=== PATIENT | female | born 1955 | race Caucasian/White ===

== ENCOUNTER → 2017-01-24 | Outpatient (CLI) | payer OTHER ==
--- NOTE | 2017-01-24 11:04 | US ---
EXAMINATION TYPE: US thyroid st tissue head/neck DATE OF EXAM: 01/24/2017 10:48 AM COMPARISON: No previous CLINICAL HISTORY: E04.9 Nontoxic goiter. Enlarged thyroid, neck tenderness GLAND SIZE: Right Lobe: 5.5 x 2.4 x 2.2 cm Overall Parenchyma: homogenous Left Lobe: 5.4 x 2.4 x 2.0 cm Overall Parenchyma: homogeneous Isthmus Thickness: 0.5 cm NODULES RIGHT: # of nodules measured on right: 3 1. 1.0 X 1.0 x 1.1 cm hypoechoic solid nodule at the upper pole with well-defined margins. This nod ule is wider than tall and shows intranodular vascularity. Prior size: no previous 2. 0.8 X 0.6 x 0.7 cm hypoechoic solid nodule at the lower pole with well-defined margins. This nodu le is wider than tall and shows no intranodular vascularity. Prior size: no previous 3. 0.4 X 0.4 x 0.4 cm hypoechoic cystic nodule at the lower pole with well-defined margins. This nod ule is wider than tall and shows no intranodular vascularity. Prior size: no previous LEFT: # of nodules measured on left: 2 1. 1.3 X 0.6 x 0.9 cm hypoechoic mixed nodule at the mid pole with poorly defined margins. This nod ule is wider than tall and shows intranodular vascularity. Prior size: no previous 2. 0.8 X 0.7 x 0.8 cm hypoechoic solid nodule at the lower pole with well-defined margins. This nodu le is wider than tall and shows no intranodular vascularity. Prior size: no previous ISTHMUS: # of nodules measured in the isthmus: 0 IMPRESSION: Thyromegaly with multinodular thyroid changes as discussed above.
== END | disposition home or self-care (01) ==
LOC: RADUSWWP 10:26
PROVIDERS: ATTEND Family Medicine
DX: E04.2 Nontoxic multinodular goiter (principal); E01.0 Iodine-deficiency related diffuse (endemic) goiter
CPT/HCPCS: 76536

== ENCOUNTER → 2017-08-10 | Outpatient (CLI) | payer OTHER ==
--- NOTE | 2017-08-10 08:09 | US ---
EXAMINATION TYPE: US thyroid st tissue head/neck DATE OF EXAM: 08/10/2017 COMPARISON: 01/24/17 CLINICAL HISTORY: E04.9 Nontoxic Goiter. Follow up thyroid nodules GLAND SIZE: Right Lobe: 5.9 x 3.0 x 2.4 cm Overall Parenchyma: homogenous Left Lobe: 5.5 x 2.9 x 2.2cm Overall Parenchyma: homogeneous Isthmus Thickness: 0.5 cm NODULES RIGHT: # of nodules measured on right: 3 1. 1.1 X 0.9 x 1.3 cm hypoechoic solid nodule with calcifications at the upper pole with irregular margins; . This nodule is wider than tall and shows intranodular vascularity. Prior size: 1.0 x 1.0 x 1.1 cm 2. 0.8 X 0.6 x 0.7 cm hypoechoic solid nodule at the lower pole with well-defined margins; . This n odule is wider than tall and shows no intranodular vascularity. Prior size: 0.8 x 0.6 x 0.7 cm 3. 0.4 X 0.3 x 0.4 cm cystic nodule at the lower pole with well-defined margins; . This nodule is w ider than tall and shows no intranodular vascularity. Prior size: 0.4 x 0.4 x 0.4 cm LEFT: # of nodules measured on left: 2 1. 1.2 X 0.6 x 1.1 cm mixed nodule at the mid pole with poorly defined margins; . This nodule is w ider than tall and shows intranodular vascularity. Prior size: 1.3 x 0.6 x 0.9 cm 2. 0.8 X 0.5 x 0.6 cm hypoechoic solid nodule at the lower pole with well-defined margins; . This n odule is wider than tall and shows no intranodular vascularity. Prior size: 0.8 x 0.7 x 0.8 cm ISTHMUS: # of nodules measured in the isthmus: 0 Bilateral neck scanned, no evidence of lymphadenopathy. IMPRESSION: Enlarged thyroid gland with 3 nodules noted right lobe and 2 nodules noted on the left with little to no change compare to prior exam
--- NOTE | 2017-08-11 07:50 | MM ---
Reason for exam: screening (asymptomatic). Last mammogram was performed 2 years and 2 months ago. History: Patient is postmenopausal and had first child at age 37. Benign left mammotome panel of the left breast, January 10, 2009. Benign left US cyst aspiration ea add of the left breast, January 10, 2009. Benign left US cyst aspiration of the left breast, January 10, 2009. Took hormonal contraceptives for 3 years. Taking estrogen for 2 years. Taking progesterone for 2 years. Physical Findings: A clinical breast exam by your physician is recommended on an annual basis and results should be correlated with mammographic findings. MG Screening Mammo w CAD Bilateral CC and MLO view(s) were taken. Prior study comparison: June 24, 2015, bilateral MG screening mammo w CAD. October 01, 2013, [facility] DIGITAL LEFT BREAST MAMMOGRAM w/CAD. The breast tissue is heterogeneously dense. This may lower the sensitivity of mammography. Benign calcifications. There is no discrete abnormality. No significant changes when compared with prior studies. ASSESSMENT: Benign, BI-RAD 2 RECOMMENDATION: Routine screening mammogram of both breasts in 1 year.
== END | disposition home or self-care (01) ==
LOC: RADUSWWP 07:01
PROVIDERS: ATTEND Family Medicine
DX: Z12.31 Encounter for screening mammogram for malignant neoplasm of breast (principal); E04.2 Nontoxic multinodular goiter
CPT/HCPCS: 76536; G0202

== ENCOUNTER → 2017-12-24 | Outpatient (CLI) | payer OTHER ==
[2017-12-24 11:21] LABS: Basophils # (A) 0.1 k/uL (0-0.2); Basophils % (A) 1 %; Eosinophils # (A) 0.1 k/uL (0-0.7); Eosinophils % (A) 2 %; HCT 44.3 % (34.0-46.0); HGB 15.2 gm/dL (11.4-16.0); Lymphocytes # (A) 1.9 k/uL (1.0-4.8); Lymphocytes % (A) 37 %; MCH 30.6 pg (25.0-35.0); MCHC 34.2 g/dL (31.0-37.0); MCV 89.5 fL (80.0-100.0); Mean Platelet Volume 6.4; Monocytes # (A) 0.3 k/uL (0-1.0); Monocytes % (A) 6 %; Neutrophils # (A) 2.7 k/uL (1.3-7.7); Neutrophils % (A) 52 %; Platelet Count 187 k/uL (150-450); RBC 4.96 m/uL (3.80-5.40); RDW 13.4 % (11.5-15.5); WBC 5.2 k/uL (3.8-10.6)
== END | disposition home or self-care (01) ==
LOC: LABPAT 10:57
PROVIDERS: ATTEND Obstetrics & Gynecology
DX: Z01.818 Encounter for other preprocedural examination (principal); Z01.812 Encounter for preprocedural laboratory examination; I10 Essential (primary) hypertension; N95.0 Postmenopausal bleeding; N88.2 Stricture and stenosis of cervix uteri
CPT/HCPCS: 36415; 85025; 93005

== ENCOUNTER 2018-01-10 06:28 | Day surgery (SDC) | payer OTHER ==
[2017-12-30 12:56] VITALS: BMI 27.4
--- NOTE | 2018-01-09 14:52 | HP ---
HISTORY AND PHYSICAL DATE OF SERVICE: 01/09/2018 DATE OF SURGERY: 01/10/2018 HISTORY OF PRESENT ILLNESS: The patient is a 62-year-old 1, para 1-0-0-2 who presented to the office several times over the last year with complaints of fairly regular vaginal spotting. She has had a complete workup with ultrasound showing a fibroid, but only a 4 mm endometrial stripe. Office endometrial biopsy could not be done secondary to cervical stenosis. She does find that the spotting is slightly increased with a Valsalva. She was originally scheduled for hysteroscopy with D and C several months ago, but opted to cancel and follow her symptoms. As the bleeding and spotting continued for the following 3 months, she has opted to reschedule the procedure. PAST MEDICAL HISTORY: Significant for history of goiter as well as hypertension and nephrolithiasis. SURGICAL HISTORY: Significant for tonsils and adenoids removed, a breast biopsy in 2008, a in 1991, endometrial biopsy in 2006 which was benign and then diagnostic laparoscopy with laser ablation of endometriosis on two separate occasions in both 1989 and 1990. There were no anesthetic concerns. OBSTETRICAL HISTORY: 1, para 1-0-0-2 with 1 set of twins delivered by section at term. The patient is otherwise menopausal and not in need of contraception. GYNECOLOGIC HISTORY: Unremarkable with no history of any infections to include STDs. FAMILY HISTORY: Noncontributory. SOCIAL HISTORY: The patient is and is a nonsmoker. 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 She denies any other social concerns. CURRENT MEDICATIONS: 1. Maxzide 5 mg daily. 2. Topical medication for her scalp as needed. ALLERGIES: No known drug allergies. REVIEW OF SYSTEMS: Confined to history of present illness. PHYSICAL EXAMINATION: Vital signs are stable and the patient is afebrile. In general, this is a well- developed, well-nourished white female in no acute distress. Her heart has a regular rhythm and rate without murmur. Her lungs are clear to auscultation bilaterally in all eckert. Her abdomen is nondistended, has normoactive bowel sounds, is soft, nontender, and without any palpable masses, hepatosplenomegaly, or hernias. Her extremities are without any cyanosis, clubbing, or edema and are nontender to palpation bilaterally. Pelvic examination demonstrates normal external genitalia and BUS with normal vaginal mucosa and cervix. There is no cervical motion tenderness. The cervix is also quite stenotic. The uterus is otherwise atrophic in size, mid plane, mobile, nontender, and otherwise normal in shape. The adnexa are normal and nontender without mass bilaterally. IMPRESSION: Postmenopausal bleeding, cervical stenosis: We have scheduled a diagnostic hysteroscopy with D and C. The risks and complications of this procedure have been thoroughly discussed including the risk for bleeding, bleeding with chronic transfusion, infection, and injury to local structures to specifically include uterine perforation and Asherman syndrome. She has understood all this and has agreed to proceed. MMODL / IJN: [id number] /
[~2018-01-10 06:28] MED LIST: DEXAMETHASONE SOD PHOSPHATE 10 MG/ML 1 ML VIAL IV ONE; LACTATED RINGERS 1,000 ML IV SCH; MIDAZOLAM 2 MG/2 ML VIAL IV PRN; MORPHINE SULFATE 4 MG/ML SYRINGE IV PRN; ONDANSETRON 4 MG/2 ML VIAL IVP ONE; Pre Op ABX Message 1 EACH MISC MISCELLANE ONE; SCOPOLAMINE 1.5MG/72HR PATCH TRANSDERM ONE
[2018-01-10] MEDS ORDERED: LIDOCAINE 1% 20 ML VIAL (10MG/ML) FOR IV START INTRADERMA ONE (07:00)
[2018-01-10] MEDS ORDERED: diphenhydrAMINE 50 MG/ML 1 ML VIAL IVP PRN (07:54)
[2018-01-10] MEDS ORDERED: METOCLOPRAMIDE 5 MG/ML 2 ML VIAL IVP PRN (07:54)
[2018-01-10] MEDS ORDERED: SIMETHICONE 80 MG CHEWABLE PO PRN (07:54)
[2018-01-10] MEDS ORDERED: ONDANSETRON 4 MG/2 ML VIAL IVP PRN (07:54)
[2018-01-10] MEDS ORDERED: Acetaminophen-Codeine 300-30mg TAB PO PRN ×2 (07:54)
[2018-01-10] MEDS ORDERED: IBUPROFEN 600 MG TAB PO PRN (07:54)
[2018-01-10] MEDS ORDERED: KETOROLAC 30 MG/ML 1 ML VIAL IVP PRN (07:54)
[2018-01-10] MEDS ORDERED: PROPOFOL 10 MG/ML 20 ML VIAL IV ONE (07:55)
[2018-01-10] MEDS ORDERED: KETOROLAC 30 MG/ML 1 ML VIAL ONE (07:55)
[2018-01-10] MEDS ORDERED: fentaNYL (PF) 50 MCG/ML 2 ML AMP ONE (07:55)
[2018-01-10] MEDS ORDERED: MIDAZOLAM 2 MG/2 ML VIAL ONE (07:55)
[2018-01-10] MEDS ORDERED: LIDOCAINE 1% INJ 10MG/ML (20 ML MDV) ONE (07:55)
[2018-01-10] MEDS ORDERED: LACTATED RINGERS 1,000 ML IV SCH (08:00)
--- NOTE | 2018-01-10 08:41 | P.OP ---
Date of Procedure: 01/10/18 Preoperative Diagnosis: #1. Postmenopausal bleeding #2. Cervical stenosis Postoperative Diagnosis: Same Procedure(s) Performed: #1. Diagnostic hysteroscopy #2. Dilation and curettage Anesthesia: other (Gen. by face mask) Surgeon: Arsen Huynh Estimated Blood Loss (ml): 5 IV fluids (ml): 400 Urine output (ml): 75 Pathology: other (Endometrial curettings) Condition: stable Disposition: PACU Operative Findings: Preoperative pelvic examination demonstrated a 4-5 week anteverted mobile normal shaped uterus with normal adnexa bilaterally. Intraoperatively, the uterus sounded to approximately 7-8 cm. There was some concern for the possibility of a false track or uterine perforation during the procedure. However, the endometrial cavity did appear to be normal by hysteroscopy. There was a small amount of shaggy tissue scattered throughout. Curettage produced a small amount of tissue onto a Telfa which was sent to pathology. Description of Procedure: The patient was prepped and draped in usual fashion after general anesthesia was administered by the anesthesiologist. A weighted speculum was placed in the anterior and posterior lip of the cervix were grasped with tenaculums. The cervix itself was significantly atrophic and stenotic in nature. I was unable to initially pass a sound. A small dilator was ultimately utilized to enter the uterine cavity and serial dilation carried out. There was some concern as to the possibility of a perforation and the uterus ultimately sounded to approximately 7-8 cm. After adequate dilation, the diagnostic hysteroscope was placed and the appeared to be within the endometrial cavity as the one tubal ostia was definitely identified. A small amount of further dilation was carried out to admit a small sharp curette. The in vitro cavity was then thoroughly curetted onto a Telfa placed in the vagina with a small amount of tissue returned. No perforation was ever identified using the hysteroscope. All instrumentation was removed and minimal ongoing bleeding was noted from the cervix or otherwise. As the patient was otherwise stable, the procedure was terminated. Estimated blood loss was less than 5 mL. There were no complications aside from the possibility of perforation of the uterus which was never documented. All sponge, instrument, and needle counts were correct. Patient tolerated the procedure well and proceeded to the recovery room in stable condition.
[2018-01-10 08:51] VITALS: TEMP 97.4
[2018-01-10 09:43] VITALS: RESP 16
[2018-01-10 10:24] VITALS: BP 132/70; PULSE 70
== END 2018-01-10 10:35 | disposition home or self-care (01) ==
LOC: OR 06:28
PROVIDERS: ATTEND Obstetrics & Gynecology
DX: C54.1 Malignant neoplasm of endometrium (principal); M48.02 Spinal stenosis, cervical region; I10 Essential (primary) hypertension; Z87.442 Personal history of urinary calculi; M79.1 Myalgia; Z79.899 Other long term (current) drug therapy
CPT/HCPCS: 88305; 88342; 88341; 58558; J2250; J1100; J2405; J2001; J3010; J1885; J2704

== ENCOUNTER → 2018-04-04 | Outpatient (CLI) | payer OTHER ==
--- NOTE | 2018-04-04 17:40 | US ---
EXAMINATION TYPE: US thyroid st tissue head/neck DATE OF EXAM: 04/04/2018 COMPARISON: 07/31/2017 CLINICAL HISTORY: E04.2 Nontoxic multinodular goiter. GLAND SIZE: Right Lobe: 6.0 x 2.4 x 2.7 cm Overall Parenchyma: homogenous Left Lobe: 5.5 x 2.3 x 2.0 cm Overall Parenchyma: homogeneous Isthmus Thickness: 0.6 cm NODULES RIGHT: # of nodules measured on right: 2 1. 1.1 x 0.8 x 1.1 cm hypoechoic solid nodule at the upper pole with irregular margins; interrupted peripheral calcification. This nodule is wider than tall and shows intranodular vascularity. Prior size: 1.1 x 0.9 x 1.1 cm 2. 0.7 X 0.6 x 0.7 cm isoechoic solid nodule at the lower pole with well-defined margins This nod ule is wider than tall and shows no intranodular vascularity. Prior size: 0.8 x 0.6 x 0.7 cm 3. subcentimeter cyst seen previously not seen on today's exam LEFT: # of nodules measured on left: 2 1. 1.0 X 0.5 x 0.9 cm isoechoic solid nodule at the upper pole with well-defined margins. This nod ule is wider than tall and shows intranodular vascularity. Prior size: 1.2 x 0.6 x 1.1 cm 2. 0.6 X 0.5 x 0.6 cm isoechoic solid nodule at the lower pole with well-defined margins . This nodu le is wider than tall and shows no intranodular vascularity. Prior size: 0.8 x 0.5 x 0.6 cm ISTHMUS: # of nodules measured in the isthmus: 0 Bilateral neck scanned, no evidence of lymphadenopathy. IMPRESSION: Enlarged thyroid gland with multiple nodular densities. No dominant thyroid mass. No adverse change o verall compared to old exam. This is consistent with multinodular goiter.
== END | disposition home or self-care (01) ==
LOC: RADUSWWP 16:52
PROVIDERS: ATTEND Internal Medicine Endocrinology, Diabetes & Metabolism
DX: E04.2 Nontoxic multinodular goiter (principal)
CPT/HCPCS: 76536

== ENCOUNTER → 2018-08-09 | Outpatient (CLI) | payer OTHER ==
[2018-08-09 11:18] LABS: Blood Urea Nitrogen 11 mg/dL (7-17)
--- NOTE | 2018-08-10 13:49 | CT ---
EXAMINATION TYPE: CT ChestAbdPelvis w con DATE OF EXAM: 08/09/2018 COMPARISON: Prior CT chest abdomen pelvis 02/04/2018 from outside institution HISTORY: Uterine CA CT DLP: 833.7 mGycm Automated exposure control for dose reduction was used. CONTRAST: CT scan of the chest, abdomen and pelvis is performed with Oral Contrast and with IV Contrast, patien t injected with 100 mL of Isovue 300. FINDINGS: Right jugular Port-A-Cath is present, distal tip of the catheter coursing to the cavoatrial junction level, port is in the right pectoral region. There is a hiatal hernia present. LUNGS: The lungs are grossly clear, there is no concerning parenchymal mass or nodule identified. Pre viously identified subpleural 2 mm nodule not identified with certainty. There is no pleural effusio n or pneumothorax seen. The tracheobronchial tree is patent. MEDIASTINUM: There are no greater than 1 cm hilar or mediastinal lymph nodes. No pericardial effusi on is seen. AORTA: No significant abnormality is seen. OTHER: No additional significant abnormality is seen. LIVER/GB: Large probable hemangioma again noted within the posterior right lobe of the liver shows a similar appearance.. PANCREAS: Calcifications within the tail of the pancreas is stable.. SPLEEN: No significant abnormality is seen. ADRENALS: No significant abnormality is seen. KIDNEYS: Nonobstructive punctate right renal calculus, mild right-sided hydronephrosis, possible UPJ stenosis noted as on prior exam. There is an enhancing structure adjacent to the aorta is likely veno us as on prior exam the left of midline, axial image 69 may be related to patient's circumaortic left renal vein, possible varix. REPRODUCTIVE ORGANS: Not seen, interval hysterectomy. BOWEL: No significant abnormality is seen. FREE AIR: No Free Air visible. ASCITES: None seen. RETROPERITONEAL ADENOPATHY: There is an oval hypodense focus adjacent to the abdominal aorta displac ing the left ureter extending to the iliac bifurcation measuring approximately 3 cm x 3 cm x 5.7 cm. This was not present on prior exam. Along the external iliac vasculature, left pelvic sidewall there is a focal hypodense region measuring approximately 6.6 x 4.5 x 6.6 cm which was not seen on prior ex am. Along the right pelvic sidewall also showing some mass effect on the external iliac vein as on th e contralateral side there is a smaller hypodense hourglass shaped focus measuring 4.7 x 3 x 4.7 cm. This is also developed in the interval. URINARY BLADDER: No significant abnormality is seen. PELVIC ADENOPATHY: None visualized. OSSEOUS STRUCTURES: No significant abnormality is seen. IMPRESSION: There is been interval development of probable pelvic and retroperitoneal adenopathy whic h shows low density. Additional findings above.
== END | disposition home or self-care (01) ==
LOC: RADPROMAIN 10:20
PROVIDERS: ATTEND Internal Medicine Hematology & Oncology
DX: Z03.89 Encounter for observation for other suspected diseases and conditions ruled out (principal); C54.9 Malignant neoplasm of corpus uteri, unspecified
CPT/HCPCS: 82565; 84520; 71260; 74177; J1642; Q9967

== ENCOUNTER → 2018-08-16 | Outpatient (CLI) | payer OTHER ==
--- NOTE | 2018-08-16 09:50 | US ---
EXAMINATION TYPE: US venous doppler duplex LE LT DATE OF EXAM: 08/16/2018 9:34 AM COMPARISON: NONE CLINICAL HISTORY: R22.42 Swelling left lower extremity. left leg swelling x 1 month, pt h/o chemo for uterine CA SIDE PERFORMED: Left TECHNIQUE: The lower extremity deep venous system is examined utilizing real time linear array sonog dean with graded compression, doppler sonography and color-flow sonography. VESSELS IMAGED: External Iliac Vein (EIV) Common Femoral Vein Deep Femoral Vein Greater Saphenous Vein * Femoral Vein Popliteal Vein Small Saphenous Vein * Proximal Calf Veins (* superficial vessels) Left Leg: Negative for DVT Results called to Alber at Dr's office at time of exam IMPRESSION: 1. Left lower extremity ultrasound negative for deep venous fibrosis.
== END ==
LOC: RADUSWWP 09:04
PROVIDERS: ATTEND Internal Medicine Hematology & Oncology
DX: R22.42 Localized swelling, mass and lump, left lower limb (principal)

== ENCOUNTER → 2018-09-11 | Outpatient (CLI) | payer OTHER ==
--- NOTE | 2018-09-12 16:21 | BMR ---
EXAMINATION TYPE: MR breast BILAT wo/w con DATE OF EXAM: 09/11/2018 COMPARISON: Mammograms dated 08/10/2017, 06/24/2015, and 09/21/2013. HISTORY: Genetic susceptibility, uterine ca TECHNIQUE: A series of fat and water weighted images in the long and short axis views of both breasts are obtained in conjunction with dynamic contrast MRI with subtraction technique. The patient was i njected with 7 mL intravenous Gadavist gadolinium contrast. Three-dimensional and additional postpr ocessing imaging is created on independent workstation and reviewed during official interpretation of this study. FINDINGS: The breasts are composed of heterogenous fibroglandular tissue. There is mild symmetric background pa renchymal enhancement. T2 weighted axial imaging demonstrates a subcentimeter cyst at the 5:30 positi on at posterior depth. Right-sided Mediport is appreciated. Bilateral calcifications. Small areas of susceptibility artifact as does the upper outer quadrant pos terior depth left breast biopsy marker. Also a posterior depth in the upper outer quadrant of the lef t breast there is a morphologically normal-appearing lymph nodes similar to the prior mammogram measu ring 4 mm in short axis. There is no suspicious mass or nodule mass enhancement of either breast. No MR evidence of suspicious intramammary, internal mammary, or axillary adenopathy. IMPRESSION: BI-RADS 1-No MRI evidence of malignancy. Annual screening mammography is recommended with considerati on for annual supplementation with MRI given this patient's high risk status.
== END ==
LOC: RADMRIMAIN 19:31
PROVIDERS: ATTEND Internal Medicine Hematology & Oncology
DX: C54.9 Malignant neoplasm of corpus uteri, unspecified (principal); Z15.01 Genetic susceptibility to malignant neoplasm of breast
CPT/HCPCS: 77059; 0159T; A9581

== ENCOUNTER 2018-09-15 08:40 | Day surgery (SDC) | payer OTHER ==
[2018-09-11 12:42] VITALS: BMI 25.0
[~2018-09-15 08:40] MED LIST changes: +HYDROmorphone 1 MG/ML 1 ML SYRINGE IVP PRN; -MORPHINE SULFATE 4 MG/ML SYRINGE IV PRN; -Pre Op ABX Message 1 EACH MISC MISCELLANE ONE; +ceFAZolin IN SWFI 2 GM/20 ML SYRINGE IVP ONE
[2018-09-15] MEDS ORDERED: LIDOCAINE 1% 20 ML VIAL (10MG/ML) FOR IV START INTRADERMA ONE (09:19)
[2018-09-15 09:20] VITALS: RESP 16; TEMP 97.2
--- NOTE | 2018-09-15 12:42 | P.GSHP ---
History of Present Illness H&P Date: 09/15/18 Chief Complaint: Endometrial cancer by Patient today for Port-A-Cath removal. Patient finished her recent chemotherapy for endometrial cancer. Otherwise no complaints. Her unfortunately was sent to the emergency department with chest pain today. She is requesting no anesthesia. Past Medical History Past Medical History: Cancer, Hearing Disorder / Deafness, Hypertension, Thyroid Disorder Additional Past Medical History / Comment(s): Uterine Cancer, thyroid nodules, deaf in left ear, numbness in left hip. History of Any Multi-Drug Resistant Organisms: None Reported Past Surgical History: Section, Hysterectomy Additional Past Surgical History / Comment(s): Laproscopies, port a catheter placement. Past Anesthesia/Blood Transfusion Reactions: No Reported Reaction Past Psychological History: No Psychological Hx Reported Smoking Status: Never smoker Past Alcohol Use History: Rare Past Drug Use History: None Reported - Past Family History Sister(s) Family Medical History: Cancer Medications and Allergies Home Medications Medication Instructions Recorded Confirmed Type Triamterene-Hctz 37.5-25Mg 1 tab PO QAM 12/30/17 09/15/18 History [Maxzide 37.5-25] amLODIPine [Norvasc] 10 mg PO QAM 09/11/18 09/15/18 History Allergies Allergy/AdvReac Type Severity Reaction Status Date / Time No Known Allergies Allergy Verified 09/15/18 09:01 Surgical - Exam Vital Signs Temp Pulse Resp BP Pulse Ox 97.2 F L 74 16 121/59 98 09/15/18 09:19 09/15/18 09:19 09/15/18 09:19 09/15/18 09:19 09/15/18 09:19 Physical exam: General: Well-developed, well-nourished HEENT: Normocephalic, sclerae nonicteric Abdomen: Nontender, nondistended Extremities: No edema Neuro: Alert and oriented Assessment and Plan (1) Endometrial cancer Narrative/Plan: Will proceed with Port-A-Cath removal Current Visit: Yes Status: Acute Code(s): C54.1 - MALIGNANT NEOPLASM OF ENDOMETRIUM SNOMED Code(s): 427284759
[2018-09-15] MEDS ORDERED: LIDOCAINE 1% INJ 10MG/ML (20 ML MDV) SQ ONE ×2 (13:07)
[2018-09-15 13:36] VITALS: BP 139/76; PULSE 100
--- NOTE | 2018-09-28 08:12 | P.OP ---
Date of Procedure: 09/28/18 Procedure(s) Performed: PREOPERATIVE DIAGNOSIS: Uterine cancer POSTOPERATIVE DIAGNOSIS: Same PROCEDURE: Port-A-Cath removal SURGEON: Carson EBL: Minimal ANESTHESIA: Local COMPLICATIONS: None OPERATIVE PROCEDURE: Patient was placed in the supine position. The chest was prepped and draped in the usual sterile fashion. The skin was localized with Marcaine solution. The previous incision was re-incised using a scalpel. The port was easily excised using accommodation of blunt dissection sharp dissection and electrocautery. The subcutaneous tissues were reapproximated using 3-0 Vicryl sutures. The skin was reapproximated using 4-0 Monocryl sutures. Steri-Strips and sterile dressings were then applied. DISPOSITION: Stable to recovery room
== END 2018-09-15 14:08 | disposition home or self-care (01) ==
LOC: OR 08:40
PROVIDERS: ATTEND Surgery
DX: C54.1 Malignant neoplasm of endometrium (principal); Z45.2 Encounter for adjustment and management of vascular access device; Z92.21 Personal history of antineoplastic chemotherapy; Z85.42 Personal history of malignant neoplasm of other parts of uterus; H91.92 Unspecified hearing loss, left ear; I10 Essential (primary) hypertension; E04.1 Nontoxic single thyroid nodule; Z79.899 Other long term (current) drug therapy
CPT/HCPCS: 36590; J1100; J2405; J2001; J0690

== ENCOUNTER → 2018-12-08 | Outpatient (CLI) | payer OTHER ==
--- NOTE | 2018-12-08 10:42 | MR ---
"MR left hip HISTORY: Left hip pain Multiplanar multisequence imaging obtained through the pelvis. Patient was unable to continue the exa m. Exam was aborted prior to termination. Correlation to CT chest abdomen pelvis 08/09/2018 Abnormal fluid signal is present running along the distribution of the iliopsoas which appears more e xtensive than prior CT, fluid signal in the left hemipelvis could be related to the prior fluid colle ction is seen on CT. Focal hypointensities are scattered within the fluid signal which are indetermin ate. Edema signal is present within the musculature about the left hip and within the subcutaneous so ft tissues. Cystic signal in the right hemipelvis shows a similar appearance to prior CT. There is so me free fluid within the pelvis. Bone marrow signal is maintained. There is no evident fracture or di slocation. Possible colonic wall thickening noted incidentally. IMPRESSION: Exam is incomplete. There are findings compatible with patient's previous abnormality brian cribed on CT of 08/09/2018 and likely related to patient's endometrial carcinoma. New signal abnormali ties are present along the iliopsoas musculature, cannot exclude iliopsoas abscess. Correlate for his tory of recent treatment for patient's endometrial carcinoma. Possible colonic wall thickening. Repor t relayed to the office of Dr. Lobato at the time of interpretation of the exam. A Yellow level critical message alert has been initiated for Alex Gil MD via the [employer] 36 0 | Critical Results System on 12/08/2018 10:39 AM. This message alert has been sent to Alex Gil MD via the preferences provided by the clinician for the receipt of Radiology Critical Findings. Nm ssage ID [id number]."
== END ==
LOC: RADMRIMAIN 08:50
PROVIDERS: ATTEND Orthopaedic Surgery
DX: M25.552 Pain in left hip (principal)

== ENCOUNTER 2018-12-15 15:01 | Emergency (ER) | payer OTHER ==
[2018-12-15] MEDS ORDERED: PIPERACILLIN-TAZOBACTAM 3.375 GM in SODIUM CHLORIDE 0.9% 100 ML IVPB STA (15:38)
[2018-12-15] MEDS ORDERED: SODIUM CHLORIDE 0.9% 1,000 ML IV STA (15:38)
[2018-12-15] MEDS ORDERED: VANCOMYCIN IV PER PHARMACY 1 EACH MISC MISCELLANE PRN (15:40)
[2018-12-15] MEDS ORDERED: CLINDAMYCIN 600 MG in DEXTROSE 5% IN WATER 50 ML IVPB STA ×2 (15:42)
[2018-12-15] MEDS ORDERED: VANCOMYCIN 1,500 MG in SODIUM CHLORIDE 0.9% 250 ML IVPB ONE (16:00)
--- NOTE | 2018-12-15 16:01 | ED ---
General Adult HPI - General Chief complaint: Extremity Problem,Nontraumatic Stated complaint: hip infection Time Seen by Provider: 12/15/18 15:30 Source: patient, RN notes reviewed, old records reviewed Mode of arrival: ambulatory Limitations: no limitations - History of Present Illness Initial comments: 63-year-old female presenting with abnormal outpatient CT. Patient's has complaint of left hip pain. Pain is been present for the past one month. She has been seen by her primary care physician and orthopedics. She'll and MRI one week ago. Computed tomography scan of the abdomen and pelvis today. CT abdomen and pelvis today show concern for healthcare and sinus abscess patient was instructed to present to the emergency department for evaluation. She states she has had subjective fever and chills including night sweats. She has recent history of uterine cancer status post chemo which ended approximately 5 months ago. She is not currently on chemotherapy. She has had abdominal surgery and lymph node removal at [facility] most recently January 2018. Patient states that over the past 1 week her pain has improved although she still has been lifting pain and left hip. Denies abdominal pain. Denies vomiting or diarrhea. - Related Data Home Medications Medication Instructions Recorded Confirmed Triamterene-Hctz 37.5-25Mg 1 tab PO DAILY 12/30/17 12/15/18 [Maxzide 37.5-25] Acetaminophen [Tylenol Extra 1,000 mg PO TID PRN 12/15/18 12/15/18 Strength] Ibuprofen [Motrin Ib] 400 mg PO Q6HR PRN 12/15/18 12/15/18 Allergies Allergy/AdvReac Type Severity Reaction Status Date / Time No Known Allergies Allergy Verified 12/15/18 16:26 Review of Systems ROS Statement: Those systems with pertinent positive or pertinent negative responses have been documented in the HPI. ROS Other: All systems not noted in ROS Statement are negative. Past Medical History Past Medical History: Cancer, Hearing Disorder / Deafness, Hypertension, Thyroid Disorder Additional Past Medical History / Comment(s): Uterine Cancer, thyroid nodules, deaf in left ear, numbness in left hip. History of Any Multi-Drug Resistant Organisms: None Reported Past Surgical History: Section, Hysterectomy Additional Past Surgical History / Comment(s): Laproscopies, port a catheter placement removed. Past Anesthesia/Blood Transfusion Reactions: No Reported Reaction Past Psychological History: No Psychological Hx Reported Smoking Status: Never smoker Past Alcohol Use History: Rare Past Drug Use History: None Reported - Past Family History Sister(s) Family Medical History: Cancer General Exam Limitations: no limitations General appearance: alert, in no apparent distress Head exam: Present: atraumatic, normocephalic Eye exam: Present: normal appearance, PERRL ENT exam: Present: normal exam Neck exam: Present: normal inspection. Absent: tenderness, meningismus Respiratory exam: Present: normal lung sounds bilaterally. Absent: respiratory distress, wheezes Cardiovascular Exam: Present: normal rhythm, tachycardia GI/Abdominal exam: Present: soft. Absent: distended, tenderness, guarding Extremities exam: Present: other (And mild pain with range of motion of left hip. No external skin changes, no induration or fluctuance) Neurological exam: Present: alert, oriented X3, CN II-XII intact. Absent: motor sensory deficit Psychiatric exam: Present: normal affect, normal mood Skin exam: Present: warm, dry, intact. Absent: cyanosis, diaphoretic Course Vital Signs 12/15/18 12/15/18 15:10 16:36 Temperature 98.2 F 98.5 F Pulse Rate 101 H 84 Respiratory 20 16 Rate Blood Pressure 153/66 143/70 O2 Sat by Pulse 99 98 Oximetry Medical Decision Making - Medical Decision Making 63-year-old female presenting with a one-month history of left hip pain, outpatient CT evidence of leukocytosis and psoas abscess, loculated abscess measuring 14 cm in its greatest dimension. There is significant intramuscular.. Fasciitis cannot be ruled out on computed tomography scan. Does have some necrotic lymph nodes in the left hemipelvis. I did discuss this case with the admitting physician at this institution as well as interventional radiology. She's felt at this time that the patient will be pursued for higher level of care. She has a relationship with [facility] where her uterine cancer been treated within the past year. Laboratory studies obtained including CBC, CMP, lactic acid and blood cultures. These are pending. Patient is started on Zosyn, clindamycin, and vancomycin. Case is discussed with the surgical accepting physician Dr. Brown, who feels this patient is better suited to ER transfer for possible interventional radiology. Discussed case with the ER physician at [facility] Dr. Roblero, who will accept transfer. All laboratory studies and blood cultures pending. - Lab Data Lab Results 12/15/18 Range/Units 16:00 Urine Color Light Yellow Urine Appearance Clear (Clear) Urine pH 7.5 (5.0-8.0) Ur Specific [place] 1.029 (1.001-1.035) Urine Protein Negative (Negative) Urine Glucose (UA) Negative (Negative) Urine Ketones Negative (Negative) Urine Blood Negative (Negative) Urine Nitrite Negative (Negative) Urine Bilirubin Negative (Negative) Urine Urobilinogen <2.0 (<2.0) mg/dL Ur Leukocyte Esterase Negative (Negative) Disposition Clinical Impression: Iliopsoas abscess on left Disposition: OTHER INSTITUTION NOT DEFINED Condition: Serious Is patient prescribed a controlled substance at d/c from ED?: No Referrals: Rod Chang III, MD [Primary Care Provider] - 1-2 days Time of Disposition: 16:05 - Out of Hospital Transfer - Req. Specs Out of Hospital Transfer - Requested Specifics: Other Emergency Center ( Transferred to [facility] emergency department)
[2018-12-15] MEDS ORDERED: MORPHINE SULFATE 4 MG/ML SYRINGE IVP STA (16:04)
[2018-12-15 16:37] VITALS: RESP 16; TEMP 98.5
[2018-12-15 16:43] LABS: Appearance,Urine Clear (Clear); Bilirubin,Urine Negative (Negative); Blood,Urine Negative (Negative); Color,Urine Light Yellow; Glucose,Urine (UA) Negative (Negative); HCT 30.1 % (34.0-46.0); Ketones,Urine Negative (Negative); Leukocyte Esterase,Urine Negative (Negative); MCH 29.4 pg (25.0-35.0); MCHC 32.1 g/dL (31.0-37.0); MCV 91.7 fL (80.0-100.0); Nitrite,Urine Negative (Negative); PH, Urine 7.5 (5.0-8.0); Protein,Urine Negative (Negative); RBC 3.29 m/uL (3.80-5.40); Specific Gravity,Urine 1.029 (1.001-1.035); Urobilinogen,Urine <2.0 mg/dL (<2.0); WBC 5.7 k/uL (3.8-10.6)
[2018-12-15 16:44] LABS: Basophils # (A) 0.1 k/uL (0-0.2); Basophils % (A) 1 %; Eosinophils # (A) 0.1 k/uL (0-0.7); Eosinophils % (A) 2 %; Lymphocytes # (A) 0.8 k/uL (1.0-4.8); Lymphocytes % (A) 15 %; Mean Platelet Volume 7.2; Monocytes # (A) 0.4 k/uL (0-1.0); Monocytes % (A) 7 %; Neutrophils # (A) 4.2 k/uL (1.3-7.7); Neutrophils % (A) 73 %; RDW 15.5 % (11.5-15.5)
[2018-12-15 16:51] LABS: HGB 9.7 gm/dL (11.4-16.0); Platelet Count 507 k/uL (150-450)
[2018-12-15 16:53] VITALS: BP 138/79; PULSE 83
[2018-12-15 16:57] LABS: ALT 26 U/L (9-52); AST 19 U/L (14-36); Albumin 2.9 g/dL (3.5-5.0); Alkaline Phosphatase 106 U/L (38-126); Anion Gap 6 mmol/L; Blood Urea Nitrogen 13 mg/dL (7-17); Calcium 8.9 mg/dL (8.4-10.2); Carbon Dioxide 28 mmol/L (22-30); Chloride 104 mmol/L (98-107); Glucose 97 mg/dL (74-99); Potassium 4.5 mmol/L (3.5-5.1); Sodium 138 mmol/L (137-145); Total Bilirubin 0.3 mg/dL (0.2-1.3); Total Protein 6.6 g/dL (6.3-8.2)
== END 2018-12-15 17:06 | disposition other institution (70) ==
LOC: EC 15:01
DX: K68.12 Psoas muscle abscess (principal); I10 Essential (primary) hypertension; H91.92 Unspecified hearing loss, left ear; Z85.42 Personal history of malignant neoplasm of other parts of uterus; Z79.899 Other long term (current) drug therapy; Z92.21 Personal history of antineoplastic chemotherapy
CPT/HCPCS: 36415; 80053; 83605; 85025; 81003; 87040; 99284; 96365; 96375; J2270

== ENCOUNTER → 2018-12-15 | Outpatient (CLI) | payer OTHER ==
--- NOTE | 2018-12-15 15:00 | CT ---
EXAMINATION TYPE: CT ChestAbdPelvis w con DATE OF EXAM: 12/15/2018 COMPARISON: 08/09/2018 HISTORY: Uterine cancer follow up, left hip pain. CT DLP: 705.2 mGycm Automated exposure control for dose reduction was used. CONTRAST: CT scan of the chest, abdomen and pelvis is performed with Oral Contrast and with IV Contrast, patien t injected with 100 mL of Isovue M300. FINDINGS: LUNGS: The lungs are grossly clear, there is no concerning parenchymal mass or nodule identified. T here is no pleural effusion or pneumothorax seen. The tracheobronchial tree is patent. 2 mm subpleur al nodule right upper lobe likely is benign. Subsegmental consolidation both lungs with tiny effusion s. Subpleural nodule laterally measures 5 mm axial image 39 MEDIASTINUM: The heart is enlarged. Minimal pericardial fluid seen. No pathologic adenopathy. Subcent imeter left thyroid nodule noted. OTHER: No additional significant abnormality is seen. LIVER/GB: Large probable hemangioma again noted within the posterior right lobe of the liver shows a similar appearance. Measures 5.5 x 3.5 cm. Localized fatty infiltration involving the left lobe of th e liver suspected. PANCREAS: No significant abnormality is seen. SPLEEN: No significant abnormality is seen. ADRENALS: No significant abnormality is seen. KIDNEYS: Nonobstructive punctate right renal calculus, mild right-sided hydronephrosis, possible UPJ stenosis noted as on prior exam. There is an enhancing structure adjacent to the aorta is likely veno us as on prior exam the left of midline, may be related to patient's circumaortic left renal vein, po ssible varix BOWEL: No significant abnormality is seen. LYMPH NODES: There is a lobulated density within the right iliac chain measuring 2.1 x 4.3 cm essenti ally stable relative the previous exam given differences in technique. Left hemipelvic lobulated dens ity appears to be involvement of the suspected abscess.. Left-sided retroperitoneal and periaortic ly mph node which appears low densities likely seen on today's exam. OSSEOUS STRUCTURES: Multilevel hypertrophic and degenerative changes are seen.. OTHER: There is abnormal air and fluid attenuation extending from the left groin into the left iliops oas muscle. There is a represent a large multiloculated abscess. Measures 14 cm in craniocaudal dimen robby. Abnormal soft tissue extends from the anterior musculature anterior to the femoral head into th e iliopsoas muscles into the pelvis. Cannot exclude some reactive wall thickening of the sigmoid colo n. Appears to be a multiloculated abscess with or wo necrotic lymph nodes. A fasciitis is in the diff erential diagnosis. Report immediately called to the Dr. John by telephone. Enhancing structure within the left retroperitoneum is stable may represent an aneurysm or varix or v ascular malformation. Small amount of free fluid in the pelvis. IMPRESSION: 1. Abnormal soft tissue thickening containing air and fluid in the musculature anterior to the femora l head extending into the pelvis into the psoas and iliopsoas muscle a length of 14 cm compatible wit h a multiloculated abscess. Fasciitis not excluded. There are a couple bubbles of free air within the retroperitoneum. There is thickening of the wall the left colon which may be reactive or related to a diverticulitis or colitis. Necrotic lymph nodes in the left hemipelvis also suspected. Finding was called to the referring physi scarlett. 2. Stable lymphadenopathy within the right hemipelvis appears low density unchanged in size or morpho logy. 3. There is right-sided hydronephrosis with a punctate 2 mm calcification. Obstruction may be seconda ry to congenital UPJ obstruction.
== END | disposition home or self-care (01) ==
LOC: RADCTMAIN 11:29
PROVIDERS: ATTEND Internal Medicine Hematology & Oncology
DX: L02.214 Cutaneous abscess of groin (principal); K63.89 Other specified diseases of intestine; R59.0 Localized enlarged lymph nodes; N13.2 Hydronephrosis with renal and ureteral calculous obstruction; R91.8 Other nonspecific abnormal finding of lung field; C54.9 Malignant neoplasm of corpus uteri, unspecified
CPT/HCPCS: 71260; 74177; Q9967

== ENCOUNTER 2019-01-15 13:55 | Emergency (ER) | payer OTHER ==
--- NOTE | 2019-01-15 15:02 | ED ---
General Adult HPI - General Chief complaint: Recheck/Abnormal Lab/Rx Stated complaint: hip infection Time Seen by Provider: 01/15/19 14:46 Source: patient, RN notes reviewed Mode of arrival: ambulatory Limitations: no limitations - History of Present Illness Initial comments: 63-year-old female presents emergency Department from Dr. Gamble's office for infection of her abdomen. Patient states she had an infection and had a drain placed by [facility]. She states that they had a removed because there was no output. states that she had a recent computed tomography scan on Tuesday and follow-up today and was found that the infection is still there. Patient has been on Flagyl, Rocephin. Patient states that she believes she needs to be transferred to [facility] because her oncologist Dr. Marcial is there. Patient states that she had uterine cancer. Patient reports no fever, chills, night sweats. She has had some loose stools but she believes is related to the antibiotics. Denies any current nausea vomiting no chest pain or shortness of breath. She states she has very minimal or no discomfort to her abdomen. - Related Data Home Medications Medication Instructions Recorded Confirmed Triamterene-Hctz 37.5-25Mg 1 tab PO DAILY 12/30/17 12/15/18 [Maxzide 37.5-25] Acetaminophen [Tylenol Extra 1,000 mg PO TID PRN 12/15/18 12/15/18 Strength] Ibuprofen [Motrin Ib] 400 mg PO Q6HR PRN 12/15/18 12/15/18 Allergies Allergy/AdvReac Type Severity Reaction Status Date / Time No Known Allergies Allergy Verified 01/15/19 14:07 Review of Systems ROS Statement: Those systems with pertinent positive or pertinent negative responses have been documented in the HPI. ROS Other: All systems not noted in ROS Statement are negative. Past Medical History Past Medical History: Cancer, Hearing Disorder / Deafness, Hypertension, Thyroid Disorder Additional Past Medical History / Comment(s): Uterine Cancer, thyroid nodules, deaf in left ear, numbness in left hip. History of Any Multi-Drug Resistant Organisms: None Reported Past Surgical History: Section, Hysterectomy Additional Past Surgical History / Comment(s): Laproscopies, port a catheter placement removed. Past Anesthesia/Blood Transfusion Reactions: No Reported Reaction Past Psychological History: No Psychological Hx Reported Smoking Status: Never smoker Past Alcohol Use History: Rare Past Drug Use History: None Reported - Past Family History Sister(s) Family Medical History: Cancer General Exam Limitations: no limitations General appearance: alert, in no apparent distress Head exam: Present: atraumatic, normocephalic, normal inspection Neck exam: Present: normal inspection, full ROM. Absent: tenderness, meningismus, lymphadenopathy Respiratory exam: Present: normal lung sounds bilaterally. Absent: respiratory distress, wheezes, rales, rhonchi, stridor Cardiovascular Exam: Present: regular rate, normal rhythm, normal heart sounds. Absent: systolic murmur, diastolic murmur, rubs, gallop, clicks GI/Abdominal exam: Present: soft, normal bowel sounds. Absent: distended, tenderness, guarding, rebound, rigid Back exam: Absent: CVA tenderness (R), CVA tenderness (L) Skin exam: Present: warm, dry, intact, normal color. Absent: rash Course Vital Signs 01/15/19 14:04 Temperature 98.4 F Pulse Rate 99 Respiratory 18 Rate Blood Pressure 163/91 O2 Sat by Pulse 99 Oximetry Medical Decision Making - Medical Decision Making 63-year-old female sent in for abnormal CT. Patient CT was reviewed which shows 3 separate abscess with possible fistula to the sigmoid colon. I did discuss the case with Jarett Rodriguez who accepts transfer for further evaluation and possible surgery. Patient's infectious disease doctor recommended starting Zosyn at this time. Patient is stable for transfer. - Lab Data Result diagrams: 01/15/19 15:01 01/15/19 15:01 Lab Results 01/15/19 01/15/19 01/15/19 Range/Units 15:01 15:01 15:01 WBC 5.3 (3.8-10.6) k/uL RBC 3.87 (3.80-5.40) m/uL Hgb 11.9 (11.4-16.0) gm/dL Hct 37.0 (34.0-46.0) % MCV 95.4 (80.0-100.0) fL MCH 30.7 (25.0-35.0) pg MCHC 32.2 (31.0-37.0) g/dL RDW 16.9 H (11.5-15.5) % Plt Count 352 (150-450) k/uL Neutrophils % 75 % Lymphocytes % 15 % Monocytes % 6 % Eosinophils % 2 % Basophils % 1 % Neutrophils # 4.0 (1.3-7.7) k/uL Lymphocytes # 0.8 L (1.0-4.8) k/uL Monocytes # 0.3 (0-1.0) k/uL Eosinophils # 0.1 (0-0.7) k/uL Basophils # 0.0 (0-0.2) k/uL Anisocytosis Slight Sodium 142 (137-145) mmol/L Potassium 3.7 (3.5-5.1) mmol/L Chloride 108 H (98-107) mmol/L Carbon Dioxide 28 (22-30) mmol/L Anion Gap 6 mmol/L BUN 8 (7-17) mg/dL Creatinine 0.49 L (0.52-1.04) mg/dL Est GFR (CKD-EPI)AfAm >90 (>60 ml/min/1.73 sqM) Est GFR (CKD-EPI)NonAf >90 (>60 ml/min/1.73 sqM) Glucose 100 H (74-99) mg/dL Plasma Lactic Acid Behzad 0.9 (0.7-2.0) mmol/L Calcium 9.4 (8.4-10.2) mg/dL Total Bilirubin 0.4 (0.2-1.3) mg/dL AST 23 (14-36) U/L ALT 28 (9-52) U/L Alkaline Phosphatase 64 (38-126) U/L Total Protein 7.4 (6.3-8.2) g/dL Albumin 3.8 (3.5-5.0) g/dL Disposition Clinical Impression: Iliopsoas abscess Disposition: OTHER INSTITUTION NOT DEFINED Condition: Stable Referrals: Rod Chang III, MD [Primary Care Provider] - 1-2 days - Out of Hospital Transfer - Req. Specs Out of Hospital Transfer - Requested Specifics: Other Emergency Center ([facility])
[2019-01-15] MEDS ORDERED: PIPERACILLIN-TAZOBACTAM 3.375 GM in SODIUM CHLORIDE 0.9% 100 ML IVPB STA (15:13)
[2019-01-15 15:20] LABS: Anisocytosis Slight; Basophils % (A) 1 %; Eosinophils # (A) 0.1 k/uL (0-0.7); Eosinophils % (A) 2 %; HGB 11.9 gm/dL (11.4-16.0); Lymphocytes # (A) 0.8 k/uL (1.0-4.8); Lymphocytes % (A) 15 %; MCH 30.7 pg (25.0-35.0); MCHC 32.2 g/dL (31.0-37.0); MCV 95.4 fL (80.0-100.0); Mean Platelet Volume 6.5; Monocytes # (A) 0.3 k/uL (0-1.0); Monocytes % (A) 6 %; Neutrophils % (A) 75 %; Platelet Count 352 k/uL (150-450); RBC 3.87 m/uL (3.80-5.40); RDW 16.9 % (11.5-15.5); WBC 5.3 k/uL (3.8-10.6)
[2019-01-15 15:32] LABS: ALT 28 U/L (9-52); AST 23 U/L (14-36); Albumin 3.8 g/dL (3.5-5.0); Alkaline Phosphatase 64 U/L (38-126); Anion Gap 6 mmol/L; Blood Urea Nitrogen 8 mg/dL (7-17); Calcium 9.4 mg/dL (8.4-10.2); Carbon Dioxide 28 mmol/L (22-30); Chloride 108 mmol/L (98-107); Glucose 100 mg/dL (74-99); Potassium 3.7 mmol/L (3.5-5.1); Sodium 142 mmol/L (137-145); Total Bilirubin 0.4 mg/dL (0.2-1.3); Total Protein 7.4 g/dL (6.3-8.2)
[2019-01-15 17:00] VITALS: BP 139/79; PULSE 75; RESP 16; TEMP 100.3
[2019-01-15] MEDS ORDERED: ACETAMINOPHEN TAB 325 MG TAB PO STA (17:00)
== END 2019-01-15 17:22 | disposition short-term general hospital (02) ==
LOC: EC 13:55
DX: M60.08 Infective myositis, other site (principal); I10 Essential (primary) hypertension; H91.92 Unspecified hearing loss, left ear; Z79.899 Other long term (current) drug therapy; Z85.42 Personal history of malignant neoplasm of other parts of uterus; Z90.710 Acquired absence of both cervix and uterus
CPT/HCPCS: 99284; 96365; 36415; 80053; 83605; 85025; 87040; J2543

== ENCOUNTER → 2019-03-01 | Outpatient (CLI) | payer OTHER ==
[2019-03-01 13:12] LABS: Basophils % (A) 1 %; Eosinophils # (A) 0.1 k/uL (0-0.7); Eosinophils % (A) 1 %; HCT 40.6 % (34.0-46.0); HGB 13.6 gm/dL (11.4-16.0); Lymphocytes # (A) 0.9 k/uL (1.0-4.8); Lymphocytes % (A) 21 %; MCH 30.6 pg (25.0-35.0); MCHC 33.4 g/dL (31.0-37.0); MCV 91.8 fL (80.0-100.0); Monocytes # (A) 0.3 k/uL (0-1.0); Monocytes % (A) 7 %; Neutrophils # (A) 2.9 k/uL (1.3-7.7); Neutrophils % (A) 68 %; Platelet Count 253 k/uL (150-450); RBC 4.43 m/uL (3.80-5.40); WBC 4.3 k/uL (3.8-10.6)
[2019-03-01 18:43] LABS: Anion Gap 10.4 mmol/L (4.00-12.00); Calcium 9.7 mg/dL (8.7-10.3); Carbon Dioxide 28.6 mmol/L (21.6-31.8); Potassium 3.8 mmol/L (3.5-5.5)
[2019-03-01 18:52] LABS: T4, Free (Free Thyroxine) 1.2 ng/dL (0.80-1.80)
== END ==
LOC: LABWHC1 12:16
PROVIDERS: ATTEND Family Medicine
DX: I10 Essential (primary) hypertension (principal)
CPT/HCPCS: 36415; 80048; 84439; 84443; 85025

== ENCOUNTER → 2019-04-02 | Outpatient (CLI) | payer OTHER ==
[2019-04-02 14:34] LABS: Blood Urea Nitrogen 17 mg/dL (7-17)
--- NOTE | 2019-04-02 16:08 | CT ---
EXAMINATION TYPE: CT ChestAbdPelvis w con DATE OF EXAM: 04/02/2019 COMPARISON: CT chest abdomen and pelvis December 15, 2018 and older CTs HISTORY: Follow up for uterine cancer. CT DLP: 675.7 mGycm. Automated Exposure Control for Dose Reduction was Utilized. CONTRAST: CT scan of the thorax, abdomen and pelvis is performed with oral and with IV Contrast, patient inject ed with 100ml mL of Isovue 300. FINDINGS: LUNGS: Linear scarring in the left lung base laterally is redemonstrated. Linear scarring posterior m edial right lung base is again seen. No suspicious nodules or masses. There is no pleural effusion or pneumothorax seen. The tracheobronchial tree is patent. MEDIASTINUM: There are no greater than 1 cm hilar or mediastinal lymph nodes. No cardiomegaly or pe ricardial effusion is seen. Stable subcentimeter left thyroid nodule axial image 3 anteriorly. OTHER: No additional significant abnormality is seen. LIVER/GB: Persistent posterior segment right hepatic dome 6.1 cm mass with peripheral nodular enhance ment central canal filling consistent with hemangioma. PANCREAS: No significant abnormality is seen. SPLEEN: No significant abnormality is seen. ADRENALS: No significant abnormality is seen. KIDNEYS: Suspect 3 mm calculus seen anterior right mid to lower kidney axial image 78. BOWEL: Oral contrast does not reach colonic level. No suspicious small and large bowel dilatation. Th ere is wandering cecum into the posterior midline of the upper pelvis axial image 92 noted. GENITAL ORGANS: Uterus is surgically absent. Stable 3.1 x 1.8 cm right adnexal thin-walled low dense mass favoring lymphocele. In the left pelvis there is heterogeneous fluid with air-fluid level at are a of prior suspected lymphocele extending over left iliopsoas muscle diminished in size slightly from most recent prior CT felt to reflect infected lymphocele with multifocal abscess formation. Some imp rovement from most recent CT is seen without complete resolution LYMPH NODES: No greater than 1cm abdominal or pelvic lymph nodes are appreciated. OSSEOUS STRUCTURES levoconvex scoliosis centered in the upper to mid thoracic spine is redemonstrated . Moderate narrowing of both hip joints is again seen. OTHER: No significant additional abnormality is seen. IMPRESSION: Improving multiloculated abscess left pelvis may be at original site of lymphocele. Hyste rectomy changes redemonstrated. No new mass or adenopathy identified to suggest neoplastic recurrence .
== END | disposition home or self-care (01) ==
LOC: RADCTMAIN 13:51
PROVIDERS: ATTEND Internal Medicine Hematology & Oncology
DX: Z03.89 Encounter for observation for other suspected diseases and conditions ruled out (principal); N73.9 Female pelvic inflammatory disease, unspecified; C54.9 Malignant neoplasm of corpus uteri, unspecified; Z90.710 Acquired absence of both cervix and uterus
CPT/HCPCS: 82565; 84520; 71260; 74177; 36415; Q9967

== ENCOUNTER → 2021-02-05 | Outpatient (CLI) | payer OTHER ==
--- NOTE | 2021-02-06 09:07 | US ---
EXAMINATION TYPE: US thyroid st tissue head/neck DATE OF EXAM: 02/05/2021 COMPARISON: 04/04/2018 CLINICAL HISTORY: 66-year-old female R59.0 ENLARGED LYMPH NODE. Pt states Dr felt enlargement of neck TECHNIQUE: Multiple sonographic images of the thyroid gland are obtained. FINDINGS: GLAND SIZE: Right Lobe: 5.4 x 2.6 x 2.1 cm Overall Parenchyma: heterogenous Left Lobe: 5.4 x 2.3 x 1.9 cm Overall Parenchyma: heterogeneous Isthmus Thickness: 0.3 cm NODULES RIGHT: # of nodules measured on right: 2 1. 0.9 X 0.8 x 0.9 cm, upper medial, solid or almost completely solid, isoechoic nodule, which is w ider than tall, with ill-defined margins, with echogenic foci. Prior size: 1.1 x 0.8 x 1.1 cm 2. 0.8 X 0.6 x 0.8 cm, lower, solid or almost completely solid, hypoechoic nodule, which is wider t almanza tall, with smooth margins, without echogenic foci. Prior size: 0.7 x 0.6 x 0.7 cm LEFT: # of nodules measured on left: 1 1. 0.9 X 0.5 x 0.7 cm, mid , solid or almost completely solid, isoechoic nodule, which is wider derick n tall, with ill-defined margins, without echogenic foci. Prior size: 1.0 x 0.5 x 0.9 cm Bilateral neck and submandibular areas scanned, no evidence of lymphadenopathy. Stable, sub-centimete r nodules bilaterally. IMPRESSION: Findings suggest multinodular goiter. Nodules are relatively unchanged. Consider continued follow-up particularly of the upper pole nodule on the right which contains calcifications.
== END ==
LOC: RADUSWWP 16:15
PROVIDERS: ATTEND Family Medicine
DX: E04.2 Nontoxic multinodular goiter (principal)
CPT/HCPCS: 76536

== ENCOUNTER → 2021-02-26 | Outpatient (CLI) | payer OTHER ==
--- NOTE | 2021-02-27 08:19 | ECHOS ---
STRESS ECHOCARDIOGRAM LUMASON: N/A Vial INDICATIONS: Chest pain, shortness of breath MEDICATIONS: BASELINE HEART RATE: 76 BASELINE BLOOD PRESSURE: 130/65 MAXIMUM HEART RATE: 153 MAXIMUM BLOOD PRESSURE: 196/95 85% MPHR: 133 100% MPHR: 156 METS: 5.0 MAXIMUM STAGE REACHED: 1 TOTAL EXERCISE TIME: 3-1/2 minutes CLINICAL INFORMATION: Baseline EKG revealed normal sinus rhythm with LVH by voltage criteria. Patient walked on standard [place] protocol for 3-1/2 minutes achieved a maximal heart rate of 153 beats per minute which is which is well above 85% of predicted maximal. Resting blood pressure was 130/65. Peak blood pressure was 196/95. The patient developed fatigue and shortness of breath and has poor conditioning. EKG remained inconclusive because of resting EKG changes of LVH and mild repolarization changes. This is a technically inconclusive stress test by EKG criteria with limited exercise capacity, probably because of poor conditioning. Baseline echo images revealed normal wall motion and wall thickening of all segments. At peak exercise, there was good augmentation of left ventricular wall motion and wall thickening of all segments suggesting that there is no evidence of stress-induced ischemia on this study. FINAL IMPRESSION: 1. Limited exercise capacity with inconclusive stress test by EKG criteria with resting EKG changes of LVH and repolarization changes. 2. Normal stress echocardiogram without evidence of ischemia. MMODL / IJN: [id number] /
== END | disposition home or self-care (01) ==
LOC: RADNMMAIN 09:18
PROVIDERS: ATTEND Family Medicine
DX: R07.9 Chest pain, unspecified (principal); R06.02 Shortness of breath
CPT/HCPCS: 93225; 93226; 93351

== ENCOUNTER → 2021-03-19 | Outpatient (CLI) | payer OTHER ==
--- NOTE | 2021-03-20 10:00 | ECHOF ---
Referral Reason:R07.89 other chest pain MEASUREMENTS -------- HEIGHT: 167.6 cm WEIGHT: 78.9 kg BP: RVIDd: 3.9 cm (< 3.3) IVSd: 1.6 cm (0.6 - 1.1) LVIDd: 3.2 cm (3.9 - 5.3) LVPWd: 1.4 cm (0.6 - 1.1) IVSs: 2.0 cm LVIDs: 1.7 cm LVPWs: 1.9 cm LAESV Index (A-L): 30.31 ml/m Ao Diam: 2.4 cm (2.0 - 3.7) AV Cusp: 2.0 cm (1.5 - 2.6) LA Diam: 3.7 cm (2.7 - 3.8) MV EXCURSION: 16.486 mm (> 18.000) MV EF SLOPE: 139 mm/s (70 - 150) EPSS: 0.1 cm MV E Kendall: 0.71 m/s MV DecT: 254 ms MV A Kendall: 0.73 m/s MV E/A Ratio: 0.96 RAP: 5.00 mmHg RVSP: 31.73 mmHg FINDINGS -------- Resting bradycardia (HR<60bpm). This was a technically adequate study. The left ventricular size is normal. There is moderate concentric left ventricular hypertrophy. O verall left ventricular systolic function is normal with, an EF between 55 - 60 %. The diastolic fi lling pattern is normal for the age of the patient 9.85. The right ventricle is mild to moderately enlarged. LA is midly dilated 29-33ml/m2. The right atrial size is normal. Interatrial and interventricular septum intact. The aortic valve is trileaflet and appears structurally normal. There is no evidence of aortic regu rgitation. There is no evidence of aortic stenosis. Mild mitral regurgitation is present. Mild tricuspid regurgitation present. There is borderline pulmonary artery hypertension. The righ t ventricular systolic pressure, as measured by Doppler, is 31.73mmHg. There is no pulmonic regurgitation present. The aortic root size is normal. IVC Not well visulized. There is no pericardial effusion. CONCLUSIONS -------- 1. This was a technically adequate study. 2. The left ventricular size is normal. 3. There is moderate concentric left ventricular hypertrophy. 4. Overall left ventricular systolic function is normal with, an EF between 55 - 60 %. 5. The diastolic filling pattern is normal for the age of the patient 9.85 6. The right ventricle is mild to moderately enlarged. 7. LA is midly dilated 29-33ml/m2. 8. Mild mitral regurgitation is present. 9. Mild tricuspid regurgitation present. 10. There is borderline pulmonary artery hypertension. 11. The right ventricular systolic pressure, as measured by Doppler, is 31.73mmHg. SENIOR INFORMATICA DEVELOPER: Digna Blanchard RDCS
== END | disposition home or self-care (01) ==
LOC: RADECHMAIN 12:25
PROVIDERS: ATTEND Family Medicine
DX: I08.1 Rheumatic disorders of both mitral and tricuspid valves (principal); I27.21 Secondary pulmonary arterial hypertension
CPT/HCPCS: 93306

== ENCOUNTER → 2023-09-17 | Outpatient (CLI) | payer OTHER ==
[2023-09-17 23:00] LABS: Basophils # (A) 0.07 X 10*3/uL (0.00-0.10); Basophils % (A) 1.4 %; Eosinophils # (A) 0.21 X 10*3/uL (0.04-0.35); Eosinophils % (A) 4.3 %; HCT 43.7 % (37.2-46.3); HGB 14.9 d/dL (12.0-15.0); Lymphocytes # (A) 1.14 X 10*3/uL (0.90-5.00); Lymphocytes % (A) 23.6 %; MCH 30.2 pg (27.0-32.0); MCHC 34.1 d/dL (32.0-37.0); MCV 88.6 FL (80.0-97.0); Mean Platelet Volume 9.9 FL (9.5-12.2); Monocytes % (A) 8.3 %; NRBC Per 100 WBC 0 X 10*3/uL (0.00-0.01); Neutrophils # (A) 3.01 X 10*3/uL (1.80-7.70); Neutrophils % (A) 62.2 %; Platelet Count 202 X 10*3/uL (140-440); RBC 4.93 X 10*6/uL (4.10-5.20); RDW 14.2 % (11.5-14.5); WBC 4.84 X 10*3/uL (4.50-10.00)
[2023-09-17 23:12] LABS: ALT 16 U/L (8-44); AST 16 U/L (13-35); Albumin 4.3 d/dL (3.8-4.9); Albumin/Globulin Ratio 1.79 Ratio (1.60-3.17); Alkaline Phosphatase 89 U/L (41-126); Blood Urea Nitrogen 15.4 mg/dL (9.0-27.0); Calcium 9.8 mg/dL (8.7-10.3); Carbon Dioxide 25.4 mmol/L (21.6-31.8); Chloride 106 mmol/L (96-109); Chol/HDL Ratio 2.83 Ratio; Globulin 2.4 d/dL (1.6-3.3); Glucose 88 mg/dL (70-110); LDL Cholesterol,Calculated 82.6 mg/dL (0.0-131.0); Sodium 142 mmol/L (135-145); Total Bilirubin 0.4 mg/dL (0.3-1.2); Total Protein 6.7 d/dL (6.2-8.2)
== END | disposition home or self-care (01) ==
LOC: LABWHC1 10:03
PROVIDERS: ATTEND Family Medicine
DX: I10 Essential (primary) hypertension (principal); E55.9 Vitamin D deficiency, unspecified
CPT/HCPCS: 36415; 80053; 80061; 82306; 85025

== ENCOUNTER → 2024-11-03 | Outpatient (CLI) | payer OTHER ==
[2024-11-04 07:26] LABS: Basophils # (A) 0.06 X 10*3/uL (0.00-0.10); Basophils % (A) 1.5 %; Eosinophils # (A) 0.17 X 10*3/uL (0.04-0.35); Eosinophils % (A) 4.3 %; HCT 46.8 % (37.2-46.3); HGB 15.3 g/dL (12.0-15.0); Lymphocytes # (A) 1.09 X 10*3/uL (0.90-5.00); Lymphocytes % (A) 27.6 %; MCH 29.5 pg (27.0-32.0); MCHC 32.7 g/dL (32.0-37.0); MCV 90.2 FL (80.0-97.0); Mean Platelet Volume 9.8 FL (9.5-12.2); Monocytes % (A) 10.1 %; NRBC Per 100 WBC 0 X 10*3/uL (0.00-0.01); Neutrophils % (A) 55.7 %; Platelet Count 232 X 10*3/uL (140-440); RBC 5.19 X 10*6/uL (4.10-5.20); WBC 3.95 X 10*3/uL (4.50-10.00)
[2024-11-04 11:18] LABS: ALT 24 U/L (8-44); AST 22 U/L (13-35); Albumin 4.5 g/dL (3.8-4.9); Alkaline Phosphatase 86 U/L (41-126); BUN/Creat Ratio 22.71 Ratio (12.00-20.00); Blood Urea Nitrogen 15.9 mg/dL (9.0-27.0); Calcium 9.7 mg/dL (8.7-10.3); Carbon Dioxide 25.7 mmol/L (21.6-31.8); Chloride 103 mmol/L (96-109); Chol/HDL Ratio 3.34 Ratio; Globulin 2.5 g/dL (1.6-3.3); Glucose 96 mg/dL (70-110); LDL Cholesterol,Calculated 122.8 mg/dL (0.0-131.0); Potassium 3.6 mmol/L (3.5-5.5); Sodium 141 mmol/L (135-145); Total Bilirubin 0.6 mg/dL (0.3-1.2)
== END | disposition home or self-care (01) ==
LOC: LABWHC1 10:10
PROVIDERS: ATTEND Family Medicine
DX: Z00.01 Encounter for general adult medical examination with abnormal findings (principal)
CPT/HCPCS: 36415; 80053; 80061; 82306; 84443; 85025